=== PATIENT | female | born 1950 | race Caucasian/White ===

== ENCOUNTER 2020-12-03 11:29 | Observation (INO) | payer MEDICARE, OTHER ==
[2020-12-03 12:16] LABS: Hemoglobin 13.6 g/dL (12.0-16.0); Mean Corpuscular HGB CONC 34.1 g/dL (32.0-36.0); Mean Corpuscular Hemoglobin 31.9 pg (27.0-31.0); Mean Corpuscular Volume 93.7 fL (78.0-98.0); Mean Platelet Volume 10.2 fL (7.4-10.4); Platelet Count 154 thou/uL (130-400); RBC Distribution Width 11.6 % (11.5-14.5); Red Blood Cell (RBC) Count 4.25 mill/uL (4.20-5.40); White Blood Cell (WBC) Count 6.3 thou/uL (4.8-10.8)
[2020-12-03 12:32] LABS: Band 1 % (5-11); Lymphocytes 37 % (21-51); MDiff Complete? YES; Monocytes 4 % (0-10); Neutrophil 56 % (42-75); Platelet Morphology Comment Appears Adequate; RBC Morphology Normal; Reactive Lymphocytes 1 % (0-10)
[2020-12-03 12:46] LABS: ALT (SGPT) 16 U/L (8-55); Albumin 4.3 g/dL (3.4-4.8); Alkaline Phosphatase 82 U/L (40-110); Anion Gap 14 mmol/L (10-20); Calc. Creatinine Clearance 0 mL/min (70-130); Calcium 9.6 mg/dL (7.8-10.44); Carbon Dioxide 24 mmol/L (23-31); Chloride 109 mmol/L (98-107); Globulin 2.7 g/dL (2.4-3.5); Glucose 102 mg/dL (80-115); Potassium 3.9 mmol/L (3.5-5.1); Sodium 143 mmol/L (136-145)
[2020-12-03 12:55] LABS: AST (SGOT) 23 U/L (5-34); BUN (Urea Nitrogen) 16 mg/dL (9.8-20.1)
[2020-12-03 13:02] LABS: CKMB 3.1 ng/mL (0-6.6)
[2020-12-03] MEDS ORDERED: Senokot S 8.6-50 MG TAB PO PRN (14:51)
[2020-12-03] MEDS ORDERED: Acetaminophen 325 MG TAB PO PRN (14:51)
[2020-12-03] MEDS ORDERED: Ondansetron ODT 4 MG TAB PO PRN (14:51)
[2020-12-03 15:59] LABS: Troponin I 0.046 ng/mL (< 0.028)
[2020-12-03 17:28] VITALS: BMI 27.1
[2020-12-03 18:25] LABS: Troponin I 0.049 ng/mL (< 0.028)
[2020-12-03] MEDS ORDERED: LUMIGAN 0.01% EA EYE SCH (21:00)
[2020-12-03] MEDS: QVAR 80 MCG INH SCH (21:03)
[2020-12-03] MEDS ORDERED: Ergocalciferol 1.25 MG(50,000 UNITS) CAP PO SCH (21:15)
[2020-12-03] MEDS ORDERED: Polyvinyl Alcohol 1.4%/Povidone 0.6% Opth Drops EA EYE PRN (21:30)
[2020-12-04 05:05] LABS: #Basophils 0.1 thou/uL (0.0-0.2); #Eosinphils 0.2 thou/uL (0.0-0.7); #Lymphocytes 2.7 thou/uL (1.20-3.40); #Monocytes 0.5 thou/uL (0.11-0.59); #Neutrophils 2.2 thou/uL (1.40-6.50); %Basophils 1.6 % (0.0-1.0); %Eosinophils 2.9 % (0.0-10.0); %Lymphocytes 47.3 % (21.0-51.0); %Monocytes 8.9 % (0.0-10.0); %Neutrophils 39.4 % (42.0-75.0); Hemoglobin 12.1 g/dL (12.0-16.0); Mean Corpuscular HGB CONC 32.8 g/dL (32.0-36.0); Mean Corpuscular Hemoglobin 31.2 pg (27.0-31.0); Mean Corpuscular Volume 95.2 fL (78.0-98.0); Mean Platelet Volume 9.4 fL (7.4-10.4); Platelet Count 175 thou/uL (130-400); RBC Distribution Width 11.8 % (11.5-14.5); Red Blood Cell (RBC) Count 3.89 mill/uL (4.20-5.40); White Blood Cell (WBC) Count 5.7 thou/uL (4.8-10.8)
[2020-12-04 05:29] LABS: ALT (SGPT) 16 U/L (8-55); AST (SGOT) 21 U/L (5-34); Albumin 3.5 g/dL (3.4-4.8); Alkaline Phosphatase 71 U/L (40-110); Anion Gap 13 mmol/L (10-20); BUN (Urea Nitrogen) 16 mg/dL (9.8-20.1); Bilirubin, Total 0.6 mg/dL (0.2-1.2); Calc. Creatinine Clearance 87 mL/min (70-130); Calcium 8.7 mg/dL (7.8-10.44); Carbon Dioxide 22 mmol/L (23-31); Chloride 110 mmol/L (98-107); Globulin 2.4 g/dL (2.4-3.5); Glucose 102 mg/dL (80-115); Potassium 4.4 mmol/L (3.5-5.1); Protein, Total 5.9 g/dL (5.8-8.1); Sodium 141 mmol/L (136-145)
[2020-12-04] MEDS: QVAR 80 MCG INH SCH (08:42)
[2020-12-04] MEDS ORDERED: Brimonidine Tartrate 0.2% Ophth Soln 5 ml Bottle EA EYE SCH (09:00)
[2020-12-04] MEDS ORDERED: Vitamin E 400 UNITS CAP PO SCH (09:00)
[2020-12-04] MEDS ORDERED: Flecainide 50 MG TAB PO SCH (09:00)
[2020-12-04] MEDS ORDERED: Rosuvastatin 20 MG TAB PO SCH (09:00)
[2020-12-04] MEDS ORDERED: Magnesium Oxide 250 MG TAB PO SCH (09:00)
[2020-12-04] MEDS ORDERED: BECLOMETHASONE DIPROPIONATE PO SCH (09:00)
[2020-12-04 13:11] LABS: SARS-CoV-2 PCR by NAA Not Detected (NotDetected)
[2020-12-04 15:28] VITALS: BP 135/63; TEMP 96.4
[2020-12-04] MEDS ORDERED: FLU VACC QS2020-21(65YR UP)/PF 240 MCG/0.7 ML SYRINGE IM ONE (18:15)
== END 2020-12-04 16:29 | disposition home or self-care (01) ==
LOC: ERS 11:29 → 2SW 14:51
PROVIDERS: ADMIT Student in an Organized Health Care Education/Training Program; ATTEND Student in an Organized Health Care Education/Training Program
DX: I47.1 Supraventricular tachycardia (principal); I10 Essential (primary) hypertension; E78.5 Hyperlipidemia, unspecified; K21.9 Gastro-esophageal reflux disease without esophagitis; I21.A1 Myocardial infarction type 2; Z79.899 Other long term (current) drug therapy; Z88.0 Allergy status to penicillin; Z88.1 Allergy status to other antibiotic agents; Z88.6 Allergy status to analgesic agent; Z88.8 Allergy status to other drugs, medicaments and biological substances; Z91.013 Allergy to seafood; Z91.041 Radiographic dye allergy status; Z98.890 Other specified postprocedural states; Z20.822 Contact with and (suspected) exposure to COVID-19
CPT/HCPCS: 71045; 80053; 82553; 84484 ×3; 85025; 93005; G0378 ×3; U0003; U0005; 36415; 84443; 87635